=== PATIENT | male | born 1955 | race Caucasian/White ===

== ENCOUNTER 2016-08-01 13:24 | Emergency (ER) | payer OTHER ==
[~2016-08-01] VITALS: Wt 95.0 kg
[2016-08-01] MEDS ORDERED: FLUORESCEIN STRIP LEFT EYE ONE (14:30)
[2016-08-01] MEDS ORDERED: TETRACAINE 0.5% 4 ML OPH LEFT EYE ONE (14:30)
[2016-08-01] MEDS ORDERED: ERYTOPOI RIGHT EYE (14:51)
[2016-08-01] MEDS ORDERED: IBUP-1542 PO (14:51)
--- NOTE | 2016-08-01 14:55 | ERD ---
ER Documentation Chief Complaint Date/Time DATE: 08/01/16 TIME: 14:52 Chief Complaint R EYE PAIN SINCE YESTERDAY. POSSIBLE FOREIGN BODY. REDNESS NOTED HPI This 60-year-old male claims of right eye irritation and redness since yesterday. It started while he was driving with the window down. Although there is no specific event. 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 Denies contact lenses, visual changes, visual field deficits. Sensation of possible foreign bodies on the medial aspect of the right eye with associated redness. ROS All systems reviewed and are negative except as per history of present illness. Medications Home Meds Active Scripts Ibuprofen* (Motrin*) 600 Mg Tab, 600 MG PO Q6, #15 TAB Prov:ANDRE KHALIL MD 08/01/16 Erythromycin* (Erythromycin* Ophthalmic) 1 Applic Oint, 1 APPLIC RIGHT EYE QID for 7 Days Prov:ANDRE KHALLI MD 08/01/16 Physical Exam Vitals Vital Signs Date Time Temp Pulse Resp B/P Pulse Ox O2 Delivery O2 Flow Rate FiO2 08/01/16 13:32 97.9 71 20 137/79 98 Physical Exam Const: [] Alert, [id number]. Head: Atraumatic Eyes: There is some scleral redness primarily on the medial aspect of the right eye. Eyes are PERRLA and extraocular movements intact and anterior chambers appeared normal. There is no visible foreign body. There is some slight inflammation and associated fluorescein uptake medially with a small 1 mm lesion with a clinical appearance of a pingueculum. Visual acuity shows no acute abnormalities. ENT: Normal External Ears, Nose and Mouth. Neck: Full range of motion..~ No meningismus. Resp: Clear to auscultation bilaterally Cardio: Regular rate and rhythm, no murmurs Abd: Soft, non tender, non distended. Normal bowel sounds Skin: No petechiae or rashes Back: No midline or flank tenderness Ext: No cyanosis, or edema Neur: Awake and alert Psych: Normal Mood and Affect Results 24 hrs Current Medications Medications (Trade) Dose Ordered Sig/[place] Route PRN Reason Start Time Stop Time Status Last Admin Dose Admin Fluorescein Sodium ([place]-A-Puptv) 1 strip ONCE ONCE LEFT EYE 08/01/16 14:30 08/01/16 14:31 DC Tetracaine HCl (Tetracaine 0.5% Steri-Unit [place]ota) 1 drop ONCE ONCE LEFT EYE 08/01/16 14:30 08/01/16 14:31 DC Procedures/MDM Patient presents with some right eye redness and irritation with no visible foreign body. He may have small conjunctival or scleral contusion or abrasion or possible pain may be from pingueculum. The signs and symptoms do not suggest globe rupture or retained foreign body or significant abrasion or dendritic lesions and Kyung sign is negative. Patient will be treated with ibuprofen and erythromycin and referral to ophthalmology for further evaluation pain this week. He should otherwise return to the ER for new or worsening symptoms as directed after instructions. Signs and symptoms do not suggest extubation, optic neuritis, retinal artery ischemia, retinal detachment. There is no evidence of orbital or periorbital cellulitis. Departure Diagnosis: Primary Impression: Pain in eye Laterality: right Qualified Code: H57.11 - Pain in eye, right Condition: Stable Patient Instructions: Conjunctivitis, Non-Specific, Contusion, Eye Referrals: [facility] Hours: Thu - Thu 9:00 AM - 5:00 PM Additional Instructions: Cheque otro vez con bill doctor primario en el proximo escobar or regresa para mas o nueva simptomas. Va al bill doctor/ specialista para mas evaluacon en el proximo semana. posiblemente necesita autorizado de bill doctor primario para specialista. Regresa para fiebre, o mas o nueva simptomas. ANDRE KHALIL MD Aug 01, 2016 14:55
[2016-08-01 15:36] VITALS: BP 122/68; PULSE 88; RESP 18
== END 2016-08-01 15:35 | disposition home or self-care (01) ==
LOC: FTE 13:24
DX: H57.11 Ocular pain, right eye (principal)
CPT/HCPCS: 99283